=== PATIENT | female | born 1985 | race Caucasian/White ===

== ENCOUNTER 2019-03-09 02:20 | Emergency (ER) | payer MEDICARE, OTHER ==
[~2019-03-09] VITALS: Ht 162.6 cm; Wt 63.5 kg
--- NOTE | 2019-03-09 02:20 | NUR ---
PT CAME INTO THE ED C/O MIDSTERNAL CHEST PAIN RADIATING TO LEFT ARM W/ SOB X 2 DAYS. PT AAOX4, NO ACUTE DISTRESS NOTED. PT CONNECTED TO THE ACCOUNTANT MANAGER AND POX
--- NOTE | 2019-03-09 02:25 | NUR ---
EKG AT BEDSIDE
[2019-03-09] MEDS ORDERED: ALBUTEROL FS 2.5 MG/3 ML VIAL.NEB ONE (02:51)
[2019-03-09] MEDS ORDERED: ALBUTEROL FS 2.5 MG/0.5 ML VIAL.NEB NEB ONE (03:00)
--- NOTE | 2019-03-09 03:04 | NUR ---
ER AT BEDSIDE
[2019-03-09] MEDS ORDERED: LIDOCAINE VISCOUS 2% UD 15 ML UDC ONE (03:08)
[2019-03-09] MEDS ORDERED: MAG HYDROX/AL HYDROX/SIMETH 30 ML UDC ONE (03:08)
[2019-03-09] MEDS ORDERED: LORAZEPAM 1 MG TABLET ONE (03:08)
[2019-03-09 03:16] VITALS: BP 134/73
--- NOTE | 2019-03-09 03:16 | NUR ---
Patient discharged to home in stable condition. Written and verbal after care instructions given. Patient verbalizes understanding of instruction.
[2019-03-09] MEDS ORDERED: MAG HYDROX/AL HYDROX/SIMETH 30 ML UDC PO ONE (03:30)
[2019-03-09] MEDS ORDERED: LIDOCAINE VISCOUS 2% UD 15 ML UDC MM ONE (03:30)
[2019-03-09] MEDS ORDERED: LORAZEPAM 1 MG TABLET PO ONE (03:30)
== END 2019-03-09 03:17 | disposition home or self-care (01) ==
LOC: ER 02:23
DX: K21.9 Gastro-esophageal reflux disease without esophagitis (principal); F41.9 Anxiety disorder, unspecified